=== PATIENT | female | born 1940 | race Caucasian/White ===

== ENCOUNTER 2020-05-28 13:04 | Day surgery (SDC) | payer MEDICARE, OTHER ==
[2020-05-28] MEDS ORDERED: Xylocaine 1% Vial 30 ML PF IJ ONE (13:05)
[2020-05-28] MEDS ORDERED: Sodium Chloride 0.9(Preservative Free) 10 ML IJ ONE (13:05)
[2020-05-28] MEDS ORDERED: Depo-Medrol 40 MG/ML IM ONE (13:05)
--- NOTE | 2020-05-28 15:07 | XRAY ---
1 minute and 5 seconds fluoroscopy time in surgery for left L4-S1 transforaminal CAROL.
--- NOTE | 2020-05-28 15:17 | XRAY ---
Indication: Left L4-S1 transforaminal CAROL. Intraoperative fluoroscopy was provided for 1 minute 5 seconds. 3 digital spot images submitted for interpretation demonstrates posterior needle tips projecting over the expected course of the left L4 and L5 nerve roots. Small amount of contrast injected for needle tip placement. Correlate with intraoperative findings/report.
== END 2020-05-28 14:21 | disposition home or self-care (01) ==
LOC: SDC-PAIN 13:04
PROVIDERS: ATTEND Psychiatry & Neurology Pain Medicine
DX: M54.16 Radiculopathy, lumbar region (principal); E11.9 Type 2 diabetes mellitus without complications; I10 Essential (primary) hypertension; K21.9 Gastro-esophageal reflux disease without esophagitis; Z79.899 Other long term (current) drug therapy
CPT/HCPCS: 64483; 64484; 72100; 77003; 82962; J1030; J2001; Q9966

== ENCOUNTER 2020-12-24 14:08 | Day surgery (SDC) | payer MEDICARE ==
[2020-12-24] MEDS ORDERED: Depo-Medrol 40 MG/ML IM ONE (14:09)
[2020-12-24] MEDS ORDERED: Xylocaine 1% Vial 30 ML PF IJ ONE (14:09)
[2020-12-24] MEDS ORDERED: BUPIVACAINE 0.5% VIAL IJ ONE (14:09)
--- NOTE | 2020-12-24 17:02 | XRAY ---
Indication: Bilateral SI joints injection. Intraoperative fluoroscopy provided for 25 seconds. 4 digital spot images submitted for interpretation demonstrates posterior needle tip projecting over the inferior left and right SI joints. Correlate with intraoperative findings/report.
--- NOTE | 2020-12-24 17:04 | XRAY ---
25 seconds fluoroscopy time in surgery for bilateral injections of the SI joints.
== END 2020-12-24 16:20 | disposition home or self-care (01) ==
LOC: SDC-PAIN 14:08
PROVIDERS: ATTEND Psychiatry & Neurology Pain Medicine
DX: M46.1 Sacroiliitis, not elsewhere classified (principal); E11.9 Type 2 diabetes mellitus without complications; I10 Essential (primary) hypertension; K21.9 Gastro-esophageal reflux disease without esophagitis; Z79.899 Other long term (current) drug therapy
CPT/HCPCS: 27096; 72202; 77002; 82947; G0260; J1030; J2001

== ENCOUNTER 2021-02-18 12:08 | Day surgery (SDC) | payer MEDICARE ==
[2021-02-18] MEDS ORDERED: Xylocaine 1% Vial 30 ML PF IJ ONE (12:09)
[2021-02-18] MEDS ORDERED: BUPIVACAINE 0.5% VIAL IJ ONE (12:09)
[2021-02-18] MEDS ORDERED: Depo-Medrol 40 MG/ML IM ONE (12:09)
--- NOTE | 2021-02-18 15:15 | XRAY ---
26 seconds fluoroscopy time in surgery for bilateral injections of the SI joints.
--- NOTE | 2021-02-18 15:25 | XRAY ---
Indication: Bilateral SI joint injection. Intraoperative fluoroscopy provided for 26 seconds. 6 digital spot images submitted for interpretation demonstrate posterior needle tip projecting over the inferior left and right SI joint. Correlate with intraoperative findings/report.
== END 2021-02-18 14:10 | disposition home or self-care (01) ==
LOC: SDC-PAIN 12:08
PROVIDERS: ATTEND Psychiatry & Neurology Pain Medicine
DX: M46.1 Sacroiliitis, not elsewhere classified (principal); E11.9 Type 2 diabetes mellitus without complications; I10 Essential (primary) hypertension; K21.9 Gastro-esophageal reflux disease without esophagitis; Z79.899 Other long term (current) drug therapy
CPT/HCPCS: 27096; 72202; 77002; 82947; G0260; J1030; J2001